=== PATIENT | female | born 1955 | race Hispanic/Latino ===

== ENCOUNTER 2017-10-10 09:41 | Emergency (ER) | payer OTHER ==
--- NOTE | 2017-10-10 11:38 | CT SCAN REPORT ---
EXAMINATION: CT ABDOMEN AND PELVIS WITHOUT CONTRAST CLINICAL INFORMATION: Left lower back pain radiating into left flank and left lower quadrant. Presumptive diagnosis of kidney stones and/or diverticulitis. COMPARISON: None TECHNIQUE: Multidetector volumetric imaging was performed from the superior aspect of the liver through the pubic symphysis. Sagittal and coronal reformatted images were obtained on the technologist's workstation. DLP: 531 mGy-cm FINDINGS: LUNG BASES: Linear opacities of atelectasis or scarring in the inferior lingula. Small, 0.2 cm calcified granuloma of the inferior lingula. Focal, curvilinear opacity of fibrosis in the paraspinal region of the medial right lower lobe. LIVER, GALLBLADDER, AND BILIARY TREE: Diffuse hepatic steatosis and mild hepatomegaly. No focal hepatic lesion or intrahepatic bile duct dilatation. Gallbladder is surgically absent. PANCREAS: Unremarkable. SPLEEN: Unremarkable. ADRENAL GLANDS: Unremarkable. KIDNEYS AND URETERS: Kidneys are normal in size. No urolithiasis, hydronephrosis or perinephric edema. 2.8 cm cortical cyst of the interpolar region of the left kidney has a simple appearance on these noncontrast images. The ureters are unremarkable. No ureterolithiasis or hydroureter. BLADDER: Unremarkable. GASTROINTESTINAL TRACT: Stomach is unremarkable. Loops of bowel are normal in caliber. Appendix is normal. A lipoma of the proximal ascending colon measures up to 3.3 cm. Multiple diverticula of the descending and sigmoid colon without pericolonic fat stranding. No evidence of acute diverticulitis. No ascites or pneumoperitoneum. ABDOMINAL WALL: Unremarkable. LYMPH NODES: Normal. VASCULAR: Atherosclerosis of abdominal aorta and iliac arteries without aneurysm. No retroperitoneal hematoma. PELVIC VISCERA: Lobulated appearance of leiomyomatous uterus. A leiomyoma with subserosal extension of the posterior uterine body measures up to approximately 4 cm maximum dimension. A leiomyoma of the anterior uterine body measures up to 2 cm. The ovaries are unremarkable. No adnexal mass or pelvic free fluid. OSSEOUS STRUCTURES: Mild dextrocurvature of the lumbar spine. Within the lumbar spine, facet osteoarthritis is worst at L4-L5 and there is 0.3 cm grade 1 anterolisthesis of L4 on L5. No significant narrowing of the central spinal canal. No evidence of a high-grade neural foraminal stenosis. There are no compression fractures in the lumbar spine. IMPRESSION: 1. Mild hepatomegaly and diffuse hepatic steatosis. 2. Colonic diverticulosis without evidence of diverticulitis. 3. No evidence of urolithiasis or urinary tract obstruction. 4. Leiomyomatous uterus.
[2017-10-10 11:40] LABS: ABSOLUTE BASOPHIL COUNT 0 /CUMM (0.0-0.2); ABSOLUTE EOSINOPHIL COUNT 0.1 /CUMM (0.0-0.7); ABSOLUTE GRANULOCYTE CT 5.9 /CUMM (1.4-6.5); ABSOLUTE LYMPH COUNT 1.4 /CUMM (1.2-3.4); ABSOLUTE MONOCYTE COUNT 0.5 /CUMM (0.10-0.60); BASOPHIL % 0.4 % (0.0-2.0); EOSINOPHIL % 1.8 % (0-5); GRANULOCYTE % 74.4 % (42.2-75.2); MEAN CORPUSCULAR HGB 31.3 PG (27.0-31.0); MEAN CORPUSCULAR HGB CONC 34.1 G/DL (33.0-37.0); MEAN CORPUSCULAR VOLUME 91.8 FL (81.0-99.0); PLATELET COUNT 317 /CUMM (130-400); RED BLOOD CELL CT 4.79 /CUMM (4.20-5.40)
--- NOTE | 2017-10-10 12:01 | ED GENERAL ADULT ---
History of Present Illness General Chief Complaint: Low Back Pain/Injury Stated Complaint: BACK PAIN X5 DAYS Source: patient, family Exam Limitations: no limitations Vital Signs & Intake/Output Vital Signs & Intake/Output Vital Signs Date Time Temp Pulse Resp B/P B/P Pulse O2 O2 Flow FiO2 Mean Ox Delivery Rate 10/10 1450 83 16 139/80 95 Room Air 10/10 0946 96.9 94 20 159/79 98 Allergies Coded Allergies: No Known Allergies (10/10/17) Reconcile Medications Cyclobenzaprine HCl 10 MG TABLET 1 TAB PO TID PRN PAIN Hydrocodone/Acetaminophen ([place] 5-325 Tablet) 5 MG-325 MG TABLET 1-2 TAB PO Q4-6 PRN PRN SEVERE PAIN Methylprednisolone. (Medrol) 4 MG TAB.DS.PK 1 DP PO AD BACK PAIN 6 on day 1 then reduce by one tablet daily until gone Triage Note: PER PT LOW BACK PAIN X 5 DAYS DENIES INJURY OR TRAUMA NO URINARY CO Triage Nurses Notes Reviewed? yes Onset: Abrupt Duration: day(s): (5), constant, continues in ED, getting worse Timing: single episode today Injury Environment: home Severity: moderate, severe Severity Numbers: 9 No Modifying Factors: none Modifying Factors: Worsens With: movement. Associated Symptoms: back pain LMP (ages 10-50): post menopausal : No Patient currently breastfeeds: No HPI: 52-year-old female history of hypertension and diabetes with resolution of back pain. Patient reports symptoms began 5 days ago and have been persistent. The pain is located mostly on the left side of her lower back and radiates into her left but. The pain is worse with movement. There is no trauma or triggering event. Patient reports she has had similar symptoms in the past but nothing this severe. She denies numbness or tingling bowel or bladder dysfunction dysuria fever abdominal pain nausea vomiting chest pain or shortness of breath. She's been taking Tylenol without any improvement. (Juan Landin) Past History Travel History Traveled to [place] past 21 day No Medical History Any Pertinent Medical History? see below for history Neurological: NONE EENT: NONE Cardiovascular: hypertension Respiratory: NONE Gastrointestinal: NONE Hepatic: NONE Renal: KIDNEY Musculoskeletal: NONE Psychiatric: NONE Endocrine: diabetes Surgical History Surgical History: non-contributory Psychosocial History What is your primary language Polish Tobacco Use: Never used Family History Hx Contributory? No (Juan Landin) Review of Systems Review of Systems Constitutional: Reports: no symptoms. EENTM: Reports: no symptoms. Respiratory: Reports: no symptoms. Cardiovascular: Reports: no symptoms. GI: Reports: no symptoms. Genitourinary: Reports: no symptoms. Musculoskeletal: Reports: see HPI, back pain, muscle pain, muscle stiffness. Skin: Reports: no symptoms. Neurological/Psychological: Reports: no symptoms. Hematologic/Endocrine: Reports: no symptoms. Immunologic/Allergic: Reports: no symptoms. All Other Systems: Reviewed and Negative (Juan Landin) Physical Exam Physical Exam General Appearance: well developed/nourished, no apparent distress, alert, awake , obese Head: atraumatic, normal appearance Eyes: Bilateral: normal appearance, PERRL, EOMI. Ears, Nose, Throat: hearing grossly normal Neck: normal inspection, supple, full range of motion Respiratory: normal breath sounds, chest non-tender, no respiratory distress, lungs clear Cardiovascular: regular rate/rhythm, normal peripheral pulses Peripheral Pulses: 2+ radial (R), 2+ radial (L) Gastrointestinal: normal bowel sounds, soft, non-tender, no organomegaly Back: normal inspection, normal range of motion, lumbar spine and paraspinal muscles tender to palpation worse in the left side. No bruising swelling or abrasions no step-offs or deformities Extremities: normal inspection, normal range of motion, no edema, straight leg raised (positive on the left) Neurologic/Psych: no motor/sensory deficits, awake, alert, oriented x 3, normal gait Reflexes: 2+: knee (R), knee (L). Skin: intact, normal color, warm/dry Lymphatic: no anterior cervical shan Core Measures ACS in differential dx? No CVA/TIA Diagnosis: No Sepsis Present: No Sepsis Focused Exam Completed? No (Juan Landin) Progress Differential Diagnoses I considered the following diagnoses in my evaluation of the patient: [Muscle spasm, sciatica, herniated disc, kidney stone, cauda equina, AAA, pyelonephritis ] Plan of Care: Orders Procedure Date/time Status URINALYSIS 10/10 1100 Complete LIPASE 10/10 1100 Complete COMPREHENSIVE METABOLIC PANEL 10/10 1100 Complete CBC WITHOUT DIFFERENTIAL 10/10 1100 Complete Laboratory Tests 10/10/17 1129: Urine Color YEL, Urine Clarity CLEAR, Urine pH 6.0, Ur Specific [place] 1.025, Urine Protein NEG, Urine Ketones NEG, Urine Nitrite NEG, Urine Bilirubin NEG, Urine Urobilinogen 0.2, Ur Leukocyte Esterase NEG, Ur Microscopic EXAM NOT REQUIRED, Urine Hemoglobin NEG, Urine Glucose >=1000 H 10/10/17 1121: Anion Gap 13, Estimated GFR > 60, BUN/Creatinine Ratio 32.5 H, Glucose 230 H, Calcium 9.0, Total Bilirubin 0.3, AST 74 H, ALT 113 H, Alkaline Phosphatase 95 , Total Protein 7.2, Albumin 4.2, Globulin 3.0, Albumin/Globulin Ratio 1.4, Lipase 89, CBC w Diff NO MAN DIFF REQ, RBC 4.79, MCV 91.8, MCH 31.3 H, MCHC 34.1, RDW 13.0, MPV 9.0, Gran % 74.4, Lymphocytes % 17.0 L, Monocytes % 6.4, Eosinophils % 1.8, Basophils % 0.4, Absolute Granulocytes 5.9, Absolute Lymphocytes 1.4, Absolute Monocytes 0.5, Absolute Eosinophils 0.1, Absolute Basophils 0 Patient is here with left-sided low back pain radiating into her left buttocks. Straight leg raise positive on the left. No trauma or triggering event. Suspect this may be sciatic pain. Patient was initially medicated with tramadol which she has taken in the past but there is not much improvement. Labs CT scan of the abdomen and pelvis ordered. Patient was also medicated with Vicodin and Toradol. Blood work is not showing acute findings. CT scan is negative. Patient is feeling somewhat better now after also Flexeril. She is able to ambulate without difficulty. Patient will be discharged with a prescription for Medrol Dosepak cyclobenzaprine and Vicodin. Advised her to rest avoid heavy lifting bending or physical activity. Follow-up with primary care doctor she is also referred to orthopedics. Discussed return precautions patient agrees the plan Diagnostic Imaging: Viewed by Me: CT Scan. Discussed w/RAD: CT Scan. Radiology Impression: PATIENT: OLIVIA OLGUIN PRESENT AGE: 62 PATIENT ACCOUNT NO: [id number] : 55 LOCATION: [facility] ORDERING PHYSICIAN: Juan BABB SERVICE DATE: 10/10/17-1099 EXAM TYPE: CAT - CT ABD & PELVIS W/O IV CONTRAS EXAMINATION: CT ABDOMEN AND PELVIS WITHOUT CONTRAST CLINICAL INFORMATION: Left lower back pain radiating into left flank and left lower quadrant. Presumptive diagnosis of kidney stones and/or diverticulitis. COMPARISON: None TECHNIQUE: Multidetector volumetric imaging was performed from the superior aspect of the liver through the pubic symphysis. Sagittal and coronal reformatted images were obtained on the technologist's workstation. DLP: 531 mGy-cm FINDINGS: LUNG BASES: Linear opacities of atelectasis or scarring in the inferior lingula. Small, 0.2 cm calcified granuloma of the inferior lingula. Focal, curvilinear opacity of fibrosis in the paraspinal region of the medial right lower lobe. LIVER, GALLBLADDER, AND BILIARY TREE: Diffuse hepatic steatosis and mild hepatomegaly. No focal hepatic lesion or intrahepatic bile duct dilatation. Gallbladder is surgically absent. PANCREAS: Unremarkable. SPLEEN: Unremarkable. ADRENAL GLANDS: Unremarkable. KIDNEYS AND URETERS: Kidneys are normal in size. No urolithiasis, hydronephrosis or perinephric edema. 2.8 cm cortical cyst of the interpolar region of the left kidney has a simple appearance on these noncontrast images. The ureters are unremarkable. No ureterolithiasis or hydroureter. BLADDER: Unremarkable. GASTROINTESTINAL TRACT: Stomach is unremarkable. Loops of bowel are normal in caliber. Appendix is normal. A lipoma of the proximal ascending colon measures up to 3.3 cm. Multiple diverticula of the descending and sigmoid colon without pericolonic fat stranding. No evidence of acute diverticulitis. No ascites or pneumoperitoneum. ABDOMINAL WALL: Unremarkable. LYMPH NODES: Normal. VASCULAR: Atherosclerosis of abdominal aorta and iliac arteries without aneurysm. No retroperitoneal hematoma. PELVIC VISCERA: Lobulated appearance of leiomyomatous uterus. A leiomyoma with subserosal extension of the posterior uterine body measures up to approximately 4 cm maximum dimension. A leiomyoma of the anterior uterine body measures up to 2 cm. The ovaries are unremarkable. No adnexal mass or pelvic free fluid. OSSEOUS STRUCTURES: Mild dextrocurvature of the lumbar spine. Within the lumbar spine, facet osteoarthritis is worst at L4-L5 and there is 0.3 cm grade 1 anterolisthesis of L4 on L5. No significant narrowing of the central spinal canal. No evidence of a high-grade neural foraminal stenosis. There are no compression fractures in the lumbar spine. IMPRESSION: 1. Mild hepatomegaly and diffuse hepatic steatosis. 2. Colonic diverticulosis without evidence of diverticulitis. 3. No evidence of urolithiasis or urinary tract obstruction. 4. Leiomyomatous uterus. DICTATED BY: Isacc Negro MD DATE/TIME DICTATED:10/10/171121 NEWS COMMENTATOR:NETTIE DATE/TIME TRANSCRIBED:1121 CONFIDENTIAL, DO NOT COPY WITHOUT APPROPRIATE AUTHORIZATION. < Electronically signed in Other Vendor System> SIGNED BY: Isacc Negro MD 10/10/17 1138 Initial ED EKG: none (Juan Landin) Departure Departure Disposition: HOME OR SELF CARE Condition: Stable Clinical Impression Primary Impression: Low back pain Qualifiers: Chronicity: acute Back pain laterality: bilateral Sciatica presence : without sciatica Qualified Code: M54.5 - Low back pain Referrals: Alex Thomas MD Patient Has No Primary Care Dr (PCP/Family) Additional Instructions: Rest, avoid heavy lifting bending or physical activity. Take Medrol Dosepak as directed for the full course. Cyclobenzaprine is a muscle relaxer that can be used every 8 hours as needed for pain. [place] for severe pain only this may cause drowsiness. Make a follow-up with provided orthopedic doctor and your primary care doctor as soon as possible monitor symptoms and return with any concerns. Departure Forms: Customer Survey General Discharge Information Prescriptions: Current Visit Scripts Hydrocodone/Acetaminophen ([place] 5-325 Tablet) 1-2 TAB PO Q4-6 PRN PRN SEVERE PAIN #10 TAB Methylprednisolone. (Medrol) 1 DP PO AD #1 DP 6 on day 1 then reduce by one tablet daily until gone Cyclobenzaprine HCl 1 TAB PO TID PRN PAIN #30 TAB (Juan Landin) PA/RAMP MANAGER Co-Sign Statement Statement: ED Attending supervision documentation- [] I saw and evaluated the patient. I have also reviewed all the pertinent lab results and diagnostic results. I agree with the findings and the plan of care as documented in the PA's/RAMP MANAGER's documentation. [X] I have reviewed the ED Record and agree with the PA's/RAMP MANAGER's documentation. [] Additions or exceptions (if any) to the PAs/RAMP MANAGER's note and plan are summarized below: [] (Moreno DOWNING,Florentino Fuentes) Critical Care Note Critical Care Note Critical Care Time: non-applicable (Celso BABB,Juan)
[2017-10-10] MEDS ORDERED: NORCO 5-325 TA1 EACH PO (14:43)
[2017-10-10] MEDS ORDERED: MEDROL4 M2 PO (14:43)
[2017-10-10] MEDS ORDERED: CYCLOBENZAPRINE10 M1 PO (14:43)
[2017-10-10 14:50] VITALS: BP 139/80
[2017-10-15] MEDS ORDERED: PERCOCET 5-3251 EACH PO (08:26)
[2017-10-15] MEDS ORDERED: VALTREX1000 MG PO (08:26)
== END 2017-10-10 14:51 ==
LOC: ERH 09:41
PROVIDERS: Physician Assistant Medical
DX: M54.5 Low back pain (principal); I10 Essential (primary) hypertension; E11.9 Type 2 diabetes mellitus without complications
CPT/HCPCS: 74176; 81003; 96372; J1885